=== PATIENT | female | born 1955 | race African-American/Black ===

== ENCOUNTER 2016-08-07 02:47 | Emergency (ER) | payer BC ==
[~2016-08-07] VITALS: Ht 170.2 cm; Wt 136.1 kg
[~2016-08-07 02:47] MED LIST: ADVAIR 250-501 EACH IH; ALBUTEROL INH; CLARITIN10 M2 PO; DILTIAZEM 24HR300 M1 PO; IRON; LOMOTIL TABLET1 EACH PO; NORCO 5-325 TA1 EACH PO; PRILOSEC 20 MG20 MG PO; SINGULAIR 10 MG10 M1 PO; TRIAMTERENE-HC1 EAC1 PO; VICODIN 5-5001 EACH PO; ZOFRAN4 MG PO; ZYRTEC1 MG/1 ML
[2016-08-07 02:50] VITALS: BP 141/89
[2016-08-07] MEDS ORDERED: FLONASE 0.05%50 MCG NASAL (02:53)
[2016-08-07] MEDS ORDERED: VENTOLIN HFA 1818 GM INH (02:53)
[2016-08-07] MEDS ORDERED: LOSARTAN-HCTZ1 EACH PO (02:53)
[2016-08-07] MEDS ORDERED: OXYBUTYNIN 5 MG5 M2 PO (02:53)
== END 2016-08-07 03:29 | disposition home or self-care (01) ==
LOC: ER 02:47
DX: S31.42XA Laceration with foreign body of vagina and vulva, initial encounter (principal); N32.81 Overactive bladder; G43.909 Migraine, unspecified, not intractable, without status migrainosus; I10 Essential (primary) hypertension; K21.9 Gastro-esophageal reflux disease without esophagitis; J44.9 Chronic obstructive pulmonary disease, unspecified; Z88.8 Allergy status to other drugs, medicaments and biological substances; X58.XXXA Exposure to other specified factors, initial encounter; Y93.89 Activity, other specified; Y92.89 Other specified places as the place of occurrence of the external cause; Y99.9 Unspecified external cause status